=== PATIENT | female | born 2000 | race Native Hawaiian/Other Pacific Islander ===

== ENCOUNTER 2018-07-20 08:14 | Emergency (ER) | payer SELFPAY ==
[~2018-07-20] VITALS: Ht 162.6 cm; Wt 83.9 kg
[2018-07-20] MEDS ORDERED: AUGMENTIN 875-1 EACH PO (09:53)
[2018-07-20] MEDS ORDERED: IBUPROFEN600 MG PO (09:53)
[2018-07-20] MEDS ORDERED: NASAL DECONGEST30 MG PO (09:53)
== END 2018-07-20 08:34 | disposition home or self-care (01) ==
LOC: ED 08:14
DX: H92.02 Otalgia, left ear (principal)

== ENCOUNTER 2018-07-20 08:40 | Emergency (ER) | payer OTHER ==
[~2018-07-20] VITALS: Ht 162.6 cm; Wt 83.9 kg
--- OUTSIDE RECORDS SUMMARY | 2018-07-20 08:44 | XMS ---
PreManage Notification: JENNIFER BAUTISTA Security Pipe [employer] Events No recent Security Events currently on file CRITERIA MET - [facility] - 2 Visits in 30 Days CARE PROVIDERS There are no care providers on record at this time. Arian has no Care Guidelines for this patient. [facility]12 MO.) [facility] NOTE: Visits indicate total known visits. ED/C VISIT TRACKING (12 MO.) 07/20/2018 08:[address] [facility] TYPE: Emergency COMPLAINT: - L EAR PAIN,NON INJURY 07/20/2018 08:[address] [facility] TYPE: Emergency COMPLAINT: - L EAR PAIN,NON INJURY INPATIENT VISIT TRACKING (12 MO.) No inpatient visits to display in this time frame [email or web address]
[2018-07-20] MEDS ORDERED: IBUPROFEN600 MG PO (09:53)
[2018-07-20] MEDS ORDERED: NASAL DECONGEST30 MG PO (09:53)
[2018-07-20] MEDS ORDERED: AUGMENTIN 875-1 EACH PO (09:53)
== END 2018-07-20 10:06 | disposition home or self-care (01) ==
LOC: ED 08:40
DX: H66.92 Otitis media, unspecified, left ear (principal)
CPT/HCPCS: 99282